=== PATIENT | male | born 1980 | race African-American/Black ===

== ENCOUNTER 2017-04-10 22:17 | Emergency (ER) | payer MEDICAID ==
[~2017-04-10] VITALS: Ht 177.8 cm; Wt 66.0 kg
[2017-04-11 01:37] LABS: BASOPHILS % 0.4 % (0.0-2.0); EOSINOPHILS % 2.3 % (0.0-5.0); HEMATOCRIT. 40.2 % (42.0-52.0); HEMOGLOBIN. 13.3 g/dL (14.0-18.0); LYMPHOCYTES % 17.7 % (20.0-50.0); MEAN CORPUSCULAR VOLUME 96.4 fL (80.0-94.0); MEAN PLATELET VOLUME 7.7 fl (7.4-10.4); NEUTROPHILS % 68.6 % (40.0-76.0); PLATELET 259 x1000/uL (130-400); RED BLOOD CELL COUNT 4.17 mill/uL (4.7-6.1)
[2017-04-11 01:45] LABS: INR 1.1
[2017-04-11 01:50] LABS: CHLORIDE 103 mEq/L (98-107)
[2017-04-11 02:05] LABS: CARBON DIOXIDE 30 mEq/L (21-32)
[2017-04-11 02:16] LABS: CLARITY URINE CLEAR (CLEAR); COLOR URINE YELLOW (YELLOW); KETONES URINE TRACE (NEGATIVE); LEUKOCYTE ESTERASE URINE NEGATIVE (NEGATIVE); NITRITE URINE NEGATIVE (NEGATIVE); OCCULT BLOOD URINE NEGATIVE (NEGATIVE); PROTEIN URINE NEGATIVE (NEGATIVE); SPECIFIC GRAVITY URINE 1.029 (1.005-1.030); UROBILINOGEN URINE 0.2 E.U./dL (0.2-1.0)
[2017-04-11] MEDS ORDERED: SODIUM CHLORIDE 0.9% 1,000 ML IV ONE (02:45)
[2017-04-11 04:07] VITALS: BP 145/65
== END 2017-04-11 05:53 | disposition home or self-care (01) ==
LOC: ER 22:42
DX: K85.90 Acute pancreatitis without necrosis or infection, unspecified (principal); M32.9 Systemic lupus erythematosus, unspecified; R19.7 Diarrhea, unspecified; R11.2 Nausea with vomiting, unspecified; F17.200 Nicotine dependence, unspecified, uncomplicated
CPT/HCPCS: 36415; 74018; 80053; 81003; 83690; 85025; 85610; 96360; 96361; 99285; J7030; Z7610

== ENCOUNTER 2020-01-29 18:22 | Emergency (ER) | payer MEDICAID ==
[~2020-01-29] VITALS: Ht 177.8 cm; Wt 68.0 kg
[2020-01-29 19:34] LABS: HEMATOCRIT. 44.8 % (42.0-52.0); MEAN CORPUSCULAR HEMOGLOBIN 32.7 pg (28.0-32.0); MEAN CORPUSCULAR VOLUME 97.7 fL (80.0-94.0); MEAN PLATELET VOLUME 7.7 fl (7.4-10.4); PLATELET 225 x1000/uL (130-400); RED BLOOD CELL COUNT 4.58 mill/uL (4.7-6.1); RED CELL DISTRIBUTION WIDTH 12.6 % (11.6-14.6)
[2020-01-29 19:40] LABS: CHLORIDE 98 mEq/L (98-107)
[2020-01-29 20:02] LABS: PLATELET ESTIMATE NORMAL
[2020-01-29] MEDS ORDERED: MORPHINE SULFATE 4 MG/ML CPJ (NOT FOR IM USE) IV STA (20:09)
[2020-01-29] MEDS ORDERED: FAMOTIDINE 20MG/2ML VIAL IV STA (20:09)
[2020-01-29] MEDS ORDERED: METOCLOPRAMIDE HCL 10MG/2ML VIAL IV STA (20:09)
[2020-01-29] MEDS ORDERED: SODIUM CHLORIDE 0.9% 1,000 ML IV ONE (20:15)
[2020-01-30] MEDS ORDERED: ONDANSETRON HCL 4MG/2ML INJ IV ONE (00:30)
[2020-01-30 01:13] VITALS: BP 125/81
== END 2020-01-30 01:16 | disposition home or self-care (01) ==
LOC: ER 18:22
DX: R10.13 Epigastric pain (principal); R11.2 Nausea with vomiting, unspecified; R19.7 Diarrhea, unspecified; F17.290 Nicotine dependence, other tobacco product, uncomplicated; F12.10 Cannabis abuse, uncomplicated
CPT/HCPCS: 36415; 74177; 80053; 83690; 85025; 93005; 96361; 96374; 96375; 99285; 99406; J2270; J2765; J3490; J7030

== ENCOUNTER 2020-01-31 18:50 | Emergency (ER) | payer MEDICAID ==
[~2020-01-31] VITALS: Ht 177.8 cm; Wt 68.0 kg
[2020-01-31] MEDS ORDERED: FAMOTIDINE 20MG/2ML VIAL IV STA (20:15)
[2020-01-31] MEDS ORDERED: ONDANSETRON HCL 4MG/2ML INJ IV STA (20:15)
[2020-01-31] MEDS ORDERED: SODIUM CHLORIDE 0.9% 1,000 ML IV ONE (20:15)
[2020-01-31] MEDS ORDERED: MORPHINE SULFATE 4 MG/ML CPJ (NOT FOR IM USE) IV STA (20:15)
[2020-01-31 21:38] LABS: BASOPHILS % 0.5 % (0.0-2.0); EOSINOPHILS % 2.8 % (0.0-5.0); HEMATOCRIT. 42.9 % (42.0-52.0); HEMOGLOBIN. 14.2 g/dL (14.0-18.0); LYMPHOCYTES % 14.6 % (20.0-50.0); MEAN CORPUSCULAR HEMOGLOBIN 32.5 pg (28.0-32.0); MEAN CORPUSCULAR VOLUME 97.9 fL (80.0-94.0); MEAN PLATELET VOLUME 8.2 fl (7.4-10.4); MONOCYTES % 9.7 % (2.0-8.0); NEUTROPHILS % 72.4 % (40.0-76.0); PLATELET 223 x1000/uL (130-400); RED BLOOD CELL COUNT 4.38 mill/uL (4.7-6.1); RED CELL DISTRIBUTION WIDTH 12.6 % (11.6-14.6)
[2020-01-31 21:43] LABS: CHLORIDE 101 mEq/L (98-107)
[2020-01-31 21:47] LABS: PROTHROMBIN TIME 10.8 sec (9.6-11.0)
[2020-01-31 21:51] LABS: ETHANOL BLOOD < 10 mg/dL
[2020-01-31 21:58] LABS: CLARITY URINE CLEAR (CLEAR); COLOR URINE YELLOW (YELLOW); KETONES URINE NEGATIVE (NEGATIVE); LEUKOCYTE ESTERASE URINE NEGATIVE (NEGATIVE); NITRITE URINE NEGATIVE (NEGATIVE); OCCULT BLOOD URINE NEGATIVE (NEGATIVE); PH URINE 5.5 (4.5-8.0); PROTEIN URINE NEGATIVE (NEGATIVE); SPECIFIC GRAVITY URINE 1.023 (1.005-1.030)
[2020-01-31 22:34] LABS: *AMPHETAMINES SCREEN URINE PRESUMTIVE POSITIVE (NEGATIVE); *BARBITURATES SCREEN URINE NEGATIVE (NEGATIVE); *BENZODIAZEPINES SCREEN URINE NEGATIVE (NEGATIVE); CANNABINOID URINE SCREEN PRESUMTIVE POSITIVE (NEGATIVE); PHENCYCLIDINE URINE SCREEN PRESUMTIVE POSITIVE (NEGATIVE)
[2020-01-31 22:35] LABS: *COCAINE SCREEN URINE NEGATIVE (NEGATIVE); METHADONE URINE SCREEN NEGATIVE (NEGATIVE); OPIATES URINE SCREEN PRESUMTIVE POSITIVE (NEGATIVE)
[2020-02-01 00:19] VITALS: BP 97/64
== END 2020-02-01 00:35 | disposition home or self-care (01) ==
LOC: ER 18:50
DX: K85.90 Acute pancreatitis without necrosis or infection, unspecified (principal); K86.1 Other chronic pancreatitis; F15.10 Other stimulant abuse, uncomplicated; F16.10 Hallucinogen abuse, uncomplicated
CPT/HCPCS: 36415; 80053; 80305; 80320; 81003; 83690; 85025; 85610; 93005; 96374; 96375; 99284; J2270; J2405; J3490; J7030; G0480

== ENCOUNTER 2025-02-04 22:47 | Emergency (ER) | payer MEDICAID, OTHER ==
[~2025-02-04] VITALS: Ht 177.8 cm; Wt 65.0 kg
[2025-02-04 22:53] VITALS: BP 144/88; PULSE 96; RESP 16; TEMP 36.6; O2SAT 96; O2SAT 98
[2025-02-05] MEDS: IBUPROFEN 600MG TABLET PO ONE
[2025-02-05] MEDS ORDERED: IBUP-1455 MT (00:41)
== END 2025-02-05 01:15 | disposition home or self-care (01) ==
LOC: ER 23:17
DX: S42.46 Fracture of medial condyle of humerus (principal); S42.442A Displaced fracture (avulsion) of medial epicondyle of left humerus, initial encounter for closed fracture; Z87.19 Personal history of other diseases of the digestive system; W19.XXXA Unspecified fall, initial encounter; Y93.89 Activity, other specified; Y92.89 Other specified places as the place of occurrence of the external cause; Y99.8 Other external cause status
CPT/HCPCS: 99283; 29105; 73070; A6449